=== PATIENT | female | born 1955 | race Caucasian/White ===

== ENCOUNTER 2018-11-11 13:32 | Emergency (ER) | payer OTHER ==
[~2018-11-11] VITALS: Ht 162.6 cm; Wt 56.4 kg
[2018-11-11] MEDS ORDERED: ASPI1TAB PO (13:42)
[2018-11-11] MEDS ORDERED: SYNT50TA PO (13:43)
[2018-11-11] MEDS ORDERED: LEXA1TAB PO (13:43)
--- NOTE | 2018-11-11 14:46 | REP ---
RIGHT HIP, TWO VIEWS: HIP: There is no evidence of an acute fracture, dislocation or intrinsic bone disease. IMPRESSION: No fracture or dislocation. Electronically Signed by Pelon Montero MD 11/12/2018 03:17 P
[2018-11-11] MEDS ORDERED: SOMA350T PO (15:39)
[2018-11-11] MEDS ORDERED: NAPR-50 PO (15:39)
[2018-11-11] MEDS ORDERED: diazePAM 10 MG TAB PO ONE (15:45)
[2018-11-11] MEDS ORDERED: NAPROXEN 250 MG TAB PO ONE (15:45)
[2018-11-11 15:55] VITALS: BP 134/74
--- NOTE | 2018-11-11 16:01 | REP ---
PELVIS, SINGLE VIEW: AP view of the pelvis was performed. There is no acute fracture, dislocation or intrinsic bone disease. IMPRESSION: No fracture or dislocation. Electronically Signed by Pelon Montero MD 11/12/2018 03:54 P
--- NOTE | 2018-11-11 16:02 | REP ---
RIGHT RIB SERIES: Four views of the right ribs are performed. No fracture or bone lesion is seen. An accompanying PA view of the chest is performed. No infiltrate, pleural effusion, or pneumothorax is seen. Heart is normal in size and mediastinal silhouette appears unremarkable. IMPRESSION: Negative right rib series. Electronically Signed by Pelon Montero MD 11/12/2018 03:55 P
== END 2018-11-11 15:56 | disposition home or self-care (01) ==
LOC: M ED 13:32
DX: S20.221A Contusion of right back wall of thorax, initial encounter (principal); S70.01XA Contusion of right hip, initial encounter; W10.8XXA Fall (on) (from) other stairs and steps, initial encounter; Y92.098 Other place in other non-institutional residence as the place of occurrence of the external cause; E03.9 Hypothyroidism, unspecified; F41.9 Anxiety disorder, unspecified; Z88.0 Allergy status to penicillin; Z79.899 Other long term (current) drug therapy; Z79.82 Long term (current) use of aspirin